=== PATIENT | male | born 1960 | race Caucasian/White ===

== ENCOUNTER 2017-07-04 08:24 | Emergency (ER) | payer OTHER, BC ==
[~2017-07-04] VITALS: Ht 188 cm; Wt 135.0 kg
[~2017-07-04 08:24] MED LIST: CEPH500C PO; CPR500 PO; HYDUNK; LRT5 PO; [UNRECOGNIZED DRUG - CODE]
[2017-07-04 08:30] VITALS: TEMP 36.9; Ht 188 cm; Wt 135.0 kg
[2017-07-04 08:36] VITALS: O2SAT 97
[2017-07-04] MEDS ORDERED: OMEG10007 PO (08:51)
[2017-07-04] MEDS ORDERED: LISI-788 PO (08:51)
[2017-07-04] MEDS ORDERED: LIDOCAINE/EPINEPHRINE 1% 20 ML VIAL INFIL ONE (09:00)
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
[2017-07-04 09:28] LABS: ISTAT CREATININE 1.1 mg/dl (0.6-1.3); ISTAT HEMOGLOBIN 13.9 g/dl (14.0-18.0); ISTAT IONIZED CALCIUM 1.16 mmol/l (1.12-1.32)
[2017-07-04] MEDS ORDERED: OPTIRAY 320 IV PRN (09:45)
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
[2017-07-04] MEDS ORDERED: ACETAMINOPHEN 500 MG TAB PO STA (10:02)
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
[2017-07-04] MEDS ORDERED: OXYC-57 PO (11:50)
[2017-07-04 12:47] VITALS: BP 148/75; PULSE 75; O2SAT 98
== END 2017-07-04 12:48 | disposition home or self-care (01) ==
LOC: EDBD 08:24 → C.EDB 08:25
DX: S81.812A Laceration without foreign body, left lower leg, initial encounter (principal); S22.32XA Fracture of one rib, left side, initial encounter for closed fracture; V43.52XA Car driver injured in collision with other type car in traffic accident, initial encounter; J98.59 Other diseases of mediastinum, not elsewhere classified; Z79.899 Other long term (current) drug therapy

== ENCOUNTER 2017-07-25 07:19 | Inpatient (IN) | payer BC, OTHER ==
[2017-07-15 08:38] VITALS: BMI 36.0
--- NOTE | 2017-07-15 09:14 | PAT Medication Instructions ---
Service Date Jul 15, 2017. Current Home Medication List Cephalexin Monohydrate (Keflex), 500 MG PO BID Fish Oil ([place]-3), 1 CAP PO QAM Lisinopril/Hctz (Zestoretic 20MG/25MG), 1 TAB PO QAM Oxycodone/Acetaminophen 5MG/325MG (Percocet 5MG/325MG), 1-2 TABLETS PO Q4H PRN for Pain Medication Instructions For Your Scheduled Surgery -Continue as directed: Cephalexin Monohydrate (Keflex), 500 MG PO BID - Hold the following medications starting tomorrow (07/16): Fish Oil ([place]-3), 1 CAP PO QAM - Hold the following medications the morning of surgery: Lisinopril/Hctz (Zestoretic 20MG/25MG), 1 TAB PO QAM - Take the following medications the morning of surgery with a sip of water: Oxycodone/Acetaminophen 5MG/325MG (Percocet 5MG/325MG), 1-2 TABLETS PO Q4H PRN for Pain (if needed, can take up t four hours before surgery) - Take the following medications as scheduled the night before surgery: Oxycodone/Acetaminophen 5MG/325MG (Percocet 5MG/325MG), 1-2 TABLETS PO Q4H PRN for Pain (if needed) If you have any questions please call us at [phone] or [phone] or [phone]
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
[2017-07-15 10:32] LABS: BASO % 0.5 %; BASO ABS # 0.04 K/uL (0-0.2); COMPLETE YES; EOS % 2.8 %; HEMATOCRIT 40.1 % (42-52); IG% 0.7 %; LYMPH ABS # 1.15 K/uL (1.2-3.4); MEAN CELL VOLUME 84.1 fL (80-100); MEAN CORPUSCULAR HEMOGLOBIN 29.6 pg (25-34); MEAN CORPUSCULAR HGB CONC 35.2 g/dl (32-36); MEAN PLATELET VOLUME 8.8 fL (7.4-10.4); MONO % 4.1 %; NEUT % 77.9 %; PLATELET COUNT 317 K/uL (130-400); RED BLOOD COUNT 4.77 M/uL (4.7-6.1); WHITE BLOOD COUNT 8.22 K/uL (4.8-10.8)
[2017-07-15 10:43] LABS: BUN/CREATININE RATIO 17.8 (10-20); CALCIUM 9.3 mg/dl (8.5-10.1); CREATININE 1.16 mg/dl (0.60-1.40)
[~2017-07-25] VITALS: Ht 188 cm; Wt 128.5 kg
[2017-07-25] VITALS (8 sets, daily range): BP systolic 108–147; BP diastolic 58–80; PULSE 68–89; TEMP 36.5–37.6; O2SAT 94–97; Ht 188 cm; Wt 128.5 kg
[~2017-07-25 07:19] MED LIST changes: -CEPH500C PO; +CEPH500C2 PO; -CPR500 PO; -HYDUNK; +LACTATED RINGER'S 1000ML 1,000 ML IV SCH; +LISI-788 PO; -LRT5 PO; +OMEG10007 PO; +OXYC-57 PO; -[UNRECOGNIZED DRUG - CODE]
--- NOTE | 2017-07-25 07:48 | History & Physical Bridge Note ---
H&P Re-Evaluation Bridge Note: I have examined the patient, reviewed the History & Physical and in the interval since the performance of the History & Physical I have noted the following changes of clinical significance: No changes noted
[2017-07-25] MEDS ORDERED: BUPIVACAINE LIPOSOME 1/3% 266 MG/20 ML VIAL INFIL ONE (09:55)
[2017-07-25] MEDS ORDERED: SODIUM CHLORIDE 0.9% PF 50 ML VIAL ONE (09:55)
[2017-07-25] MEDS ORDERED: MIDAZOLAM HCL 1 MG/ML 2ML VIAL ONE (09:58)
[2017-07-25] MEDS ORDERED: FENTANYL CITRATE INJ 50 MCG/1 ML 2 ML VIAL ONE ×3 (09:58→13:04)
[2017-07-25] MEDS ORDERED: ATROPINE SULFATE 0.1 MG/ML 5ML SYR IV PRN (10:15)
[2017-07-25] MEDS ORDERED: PHENYLEPHRINE 100MCG/ML 5ML SYR IV PRN (10:15)
[2017-07-25] MEDS ORDERED: MEPERIDINE HCL 25 MG/ML CARP IV PRN (10:15)
[2017-07-25] MEDS ORDERED: FLUMAZENIL 0.1 MG/1 ML 10 ML VIAL IV PRN (10:15)
[2017-07-25] MEDS ORDERED: EpHEDrine SULFATE INJ 50 MG/ML AMP IV PRN (10:15)
[2017-07-25] MEDS ORDERED: NALOXONE HCL 0.4 MG/1 ML VIAL/CARP IV PRN (10:15)
[2017-07-25] MEDS ORDERED: MoRPHine SULFATE 10 MG/ML CARP/VIAL IV PRN (10:15)
[2017-07-25] MEDS ORDERED: LABETALOL HCL IV 5 MG/ML 20ML IV PRN (10:15)
[2017-07-25] MEDS ORDERED: ONDANSETRON INJ 2 MG/ML 2 ML VIAL IV PRN ×2 (10:15→14:15)
[2017-07-25] MEDS ORDERED: CEFAZOLIN SOD 1 GM VIAL ONE (10:23)
[2017-07-25] MEDS ORDERED: SUCCINYLCHOLINE CHLORIDE 20 MG/ML 10 ML VIAL IV ONE (12:03)
[2017-07-25] MEDS ORDERED: PHENYLEPHRINE 100MCG/ML 5ML SYR ONE (12:03)
[2017-07-25] MEDS ORDERED: ONDANSETRON INJ 2 MG/ML 2 ML VIAL ONE (12:03)
[2017-07-25] MEDS ORDERED: ROCURONIUM BROMIDE 10 MG/ML 5 ML VIAL IV ONE ×5 (12:03→13:19)
[2017-07-25] MEDS ORDERED: DEXAMETHASONE SOD INJ 4 MG/ML VIAL ONE (12:03)
[2017-07-25] MEDS ORDERED: EpHEDrine SULFATE 50MG/5ML SYR ONE (12:03)
[2017-07-25] MEDS ORDERED: LIDOCAINE HCL 2% 2 ML VIAL (20MG/ML) ONE (12:03)
[2017-07-25] MEDS ORDERED: PROPOFOL IV EMULSION 10 MG/ML 20 ML VIAL IV ONE (12:03)
[2017-07-25] MEDS ORDERED: HYDROmorphone INJ 2 MG/ML SYR/VIAL ONE (13:52)
[2017-07-25] MEDS ORDERED: MoRPHine SULFATE 2 MG/ML CARP IV PRN (14:15)
[2017-07-25] MEDS ORDERED: OXYCODONE HCL IR 5 MG TAB (IMMEDIATE RELEASE) PO PRN (14:15)
[2017-07-25] MEDS: HYDROmorphone INJ 1 MG/ML SYR IV PRN ×2 (14:35→14:45)
--- NOTE | 2017-07-25 14:46 | DIAGNOSTIC IMAGING REPORT ---
SINGLE VIEW CHEST CLINICAL HISTORY: Status post mediastinal mass excision. FINDINGS: An AP, portable, semierect chest radiograph is compared to study dated 07/15/2017. Correlation is made with chest CT dated 07/04/2017. The examination is degraded by portable technique, apical lordotic positioning, and patient rotation. A chest tube is present at the right apex. No pneumothorax is seen. The heart appears mildly enlarged. There is prominence of the pulmonary vasculature. A trace right pleural effusion is identified. Foci of linear atelectasis are present in both lungs, greatest in the right upper lung. The bony thorax is grossly intact. Subcutaneous emphysema is noted along the right chest wall. IMPRESSION: 1. A right apical chest tube is in place. No pneumothorax is seen. 2. Mild cardiac enlargement with prominence of the central pulmonary vessels. Correlate clinically for evidence of congestive failure/fluid overload. 3. Low lung volumes with foci of platelike atelectasis. 4. A trace right pleural effusion is seen. Electronically signed by: Adin Farr M.D. 07/25/2017 2:44 PM Dictated Date/Time: 07/25/2017 2:42 PM
--- NOTE | 2017-07-25 15:00 | Anesthesiology Progress Note ---
Anesthesia Post Op Note Date & Time Jul 25, 2017 at 15:00 Vital Signs Pain Intensity: 3 Vital Signs Past 12 Hours Date Time Temp Pulse Resp B/P (MAP) Pulse Ox O2 Delivery O2 Flow Rate FiO2 07/25/17 14:16 36.2 73 16 123/74 99 Oxymask 7 07/25/17 07:58 36.7 68 18 138/76 97 Room Air Notes Mental Status: alert / awake / arousable, participated in evaluation Pt Amnestic to Procedure: Yes Nausea / Vomiting: adequately controlled Pain: adequately controlled Airway Patency, RR, SpO2: stable & adequate BP & HR: stable & adequate Hydration State: stable & adequate Anesthetic Complications: no major complications apparent
[2017-07-25] MEDS: D5W AND 1/2NSS 1,000 ML IV SCH (16:49)
[2017-07-25] MEDS: KETOROLAC TROMETHAMINE 15 MG/ML VIAL IV. SCH (17:57)
[2017-07-25] MEDS: METOCLOPRAMIDE HCL INJ 5 MG/ML 2 ML VIAL IV. SCH (17:59)
[2017-07-25] MEDS: CEFAZOLIN IV 2,000 MG in SYRINGE 0 ML IV SCH (18:14)
[2017-07-25] MEDS: ACETAMINOPHEN IV 1,000 MG in EMPTY BAG 0 ML IV SCH (18:14)
[2017-07-25] MEDS: DOCUSATE SODIUM 100 MG CAP PO SCH (20:27)
[2017-07-26] VITALS (7 sets, daily range): BP systolic 105–119; BP diastolic 59–72; PULSE 72–85; TEMP 36.9–37.2; O2SAT 91–95
[2017-07-26] MEDS: METOCLOPRAMIDE HCL INJ 5 MG/ML 2 ML VIAL IV. SCH ×2 (00:24→08:44)
[2017-07-26] MEDS: KETOROLAC TROMETHAMINE 15 MG/ML VIAL IV. SCH ×2 (00:25→08:39)
[2017-07-26] MEDS: CEFAZOLIN IV 2,000 MG in SYRINGE 0 ML IV SCH (02:16)
[2017-07-26] MEDS: ACETAMINOPHEN IV 1,000 MG in EMPTY BAG 0 ML IV SCH (02:17)
[2017-07-26] MEDS: D5W AND 1/2NSS 1,000 ML IV SCH (02:20)
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
[2017-07-26] MEDS ORDERED: ACETAMINOPHEN 325 MG TAB PO SCH (08:00)
[2017-07-26] MEDS ORDERED: CLC100 PO (08:01)
[2017-07-26] MEDS ORDERED: OXYC-57 PO (08:01)
--- NOTE | 2017-07-26 08:04 | DIAGNOSTIC IMAGING REPORT ---
CHEST ONE VIEW PORTABLE CLINICAL HISTORY: Mediastinal mass excision. COMPARISON STUDY: Chest radiograph July 25, 2017. FINDINGS: A right apical chest tube remains in place. A small right pleural effusion is noted. Linear right midlung opacity suggests atelectasis. There is no pneumothorax or evidence of pulmonary edema. Mild cardiomegaly is unchanged. Minimal right basilar opacity is present. IMPRESSION: Right chest tube in place. No pneumothorax. Small right pleural effusion with right lung opacities which favor atelectasis. Electronically signed by: Ras Carrasco M.D. 07/26/2017 8:02 AM Dictated Date/Time: 07/26/2017 7:51 AM
--- NOTE | 2017-07-26 08:04 | Discharge Instructions ---
Discharge Instructions Date of Service Jul 26, 2017. Admission Reason for Admission: Mediastinal Mass Discharge Discharge Diagnosis / Problem: Mediastinal Mass Discharge Goals Goal(s): Learn about illness Activity Recommendations Activity Limitations: as noted below Lifting Limitations: none 1. Do not drive if taking percocet. 2. Do not drive until cleared to do so by Dr. Hook. 3. You may remove dressings on July 29, 2017 and shower thereafter. No tub baths. . Instructions / Follow-Up Instructions / Follow-Up 1. Office appointment with Dr. Hook in 1 week. Office will call with date and time of appointment. Go to hospital 1 hour before appointment to have a chest x-ray taken. Current Hospital Diet Patient's current hospital diet: Regular Diet Discharge Diet Recommended Diet: Regular Diet Procedures Procedures Performed: Robotic assisted right thorascopic excision of mediastinal mass. Pending Studies Studies pending at discharge: no Medical Emergencies . Who to Call and When: Medical Emergencies: If at any time you feel your situation is an emergency, please call 911 immediately. . Non-Emergent Contact Non-Emergency issues call your: Surgeon Call Non-Emergent contact if: you have a fever, your pain is not controlled, wound has increased drainage . "Provider Documentation" section prepared by Zachery Atkins. . VTE Core Measure Inpt VTE Proph given/why not?: Enoxaparin (Lovenox)SQ
--- NOTE | 2017-07-26 08:20 | DIAGNOSTIC IMAGING REPORT ---
CHEST ONE VIEW PORTABLE CLINICAL HISTORY: chest tube removal tube position COMPARISON STUDY: 07/26/2017 FINDINGS: Interval removal of a right-sided chest tube. No significant postprocedural pneumothorax. Unchanging plaque atelectasis right mid and lower lung. IMPRESSION: Interval removal of right-sided chest tube. No significant pneumothorax. Platelike atelectasis right mid and lower lung. The above report was generated using voice recognition software. It may contain grammatical, syntax or spelling errors. Electronically signed by: Scotty Blanca M.D. 07/26/2017 8:18 AM Dictated Date/Time: 07/26/2017 8:17 AM
[2017-07-26] MEDS: DOCUSATE SODIUM 100 MG CAP PO SCH (08:38)
[2017-07-26] MEDS ORDERED: LISINOPRIL 20 MG TAB PO SCH (09:00)
[2017-07-26] MEDS ORDERED: ENOXAPARIN 40 MG/0.4 ML SYR SQ SCH (09:00)
--- NOTE | 2017-07-26 09:01 | Anesthesiology Progress Note ---
Anesthesia Post Op Note Date & Time Jul 26, 2017 at 09:01 Vital Signs Pain Intensity: 3.0 Vital Signs Past 12 Hours Date Time Temp Pulse Resp B/P (MAP) Pulse Ox O2 Delivery O2 Flow Rate FiO2 07/26/17 08:10 Room Air 07/26/17 07:47 95 Room Air 07/26/17 07:42 36.9 76 17 118/72 (87) 95 Room Air 07/26/17 07:01 37.0 76 16 119/72 (88) 94 Room Air 07/26/17 03:00 36.9 72 16 108/68 (81) 91 Nasal Cannula 2.0 07/26/17 02:00 36.9 85 16 105/59 (74) 95 Room Air 07/26/17 00:05 Nasal Cannula 2.0 07/26/17 00:00 37.2 84 16 113/68 (83) 95 Nasal Cannula 2.0 07/25/17 22:02 37.6 07/25/17 22:00 37.6 86 18 109/58 (75) 95 Nasal Cannula 2.0 Notes Mental Status: alert / awake / arousable, participated in evaluation Pt Amnestic to Procedure: Yes Nausea / Vomiting: adequately controlled Pain: adequately controlled Airway Patency, RR, SpO2: stable & adequate BP & HR: stable & adequate Hydration State: stable & adequate Anesthetic Complications: no major complications apparent
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
== END 2017-07-26 10:15 | disposition home or self-care (01) | DRG 165 ==
LOC: C.ACU 07:19 → C.MSW 07:45 → ENRESERV 15:24
PROVIDERS: ADMIT Surgery; ATTEND Surgery
PROC: 8E0W4CZ Robotic Assisted Procedure of Trunk Region, Percutaneous Endoscopic Approach (ICD-10-PCS; principal; 2017-07-25 09:15)
PROC: 0WBC4ZZ Excision of Mediastinum, Percutaneous Endoscopic Approach (ICD-10-PCS; principal; 2017-07-25 09:15)
DX: J98.59 Other diseases of mediastinum, not elsewhere classified (principal); S22.42XD Multiple fractures of ribs, left side, subsequent encounter for fracture with routine healing; S81.812D Laceration without foreign body, left lower leg, subsequent encounter; V89.2XXD Person injured in unspecified motor-vehicle accident, traffic, subsequent encounter; I10 Essential (primary) hypertension; E66.9 Obesity, unspecified; Z68.36 Body mass index [BMI] 36.0-36.9, adult; Z72.0 Tobacco use; Z79.899 Other long term (current) drug therapy

== ENCOUNTER → 2017-08-05 | Outpatient (CLI) | payer BC ==
[~2017-08-05] MED LIST changes: -CEPH500C2 PO; +CLC100 PO; -LACTATED RINGER'S 1000ML 1,000 ML IV SCH
--- NOTE | 2017-08-05 09:50 | DIAGNOSTIC IMAGING REPORT ---
CHEST 2 VIEWS ROUTINE CLINICAL HISTORY: J98.59 Mediastinal [id number] COMPARISON STUDY: 07/26/2017 FINDINGS: The heart is normal in size. There is no failure. There is no lobar consolidation. There is a right pleural effusion. There is a triangular 5 cm right midlung zone opacity, likely representing loculated pleural fluid. The left lung is clear.[ IMPRESSION: 1. Interval development of a right pleural effusion. 2. 5 cm right midlung zone opacity, likely representing loculated pleural fluid 3. Right basilar atelectatic change Electronically signed by: Sampson Lai M.D. 08/05/2017 9:49 AM Dictated Date/Time: 08/05/2017 9:46 AM
== END | disposition home or self-care (01) ==
LOC: C.RAD 09:11
PROVIDERS: ATTEND Surgery
DX: J98.59 Other diseases of mediastinum, not elsewhere classified (principal); J90 Pleural effusion, not elsewhere classified; R91.8 Other nonspecific abnormal finding of lung field; J98.11 Atelectasis

== ENCOUNTER → 2017-08-22 | Outpatient (CLI) | payer BC ==
[~2017-08-22] MED LIST changes: -CLC100 PO; -OXYC-57 PO
--- NOTE | 2017-08-22 09:54 | DIAGNOSTIC IMAGING REPORT ---
TWO VIEW CHEST CLINICAL HISTORY: Pleural effusion. FINDINGS: PA and lateral chest radiographs are compared to study dated 08/05/2017 and correlated with chest CT dated 07/04/2017. The heart is mildly enlarged and there is atherosclerotic calcification of the thoracic aorta. The pulmonary vasculature is noncongested. A right pleural effusion with right basilar atelectasis is unchanged. Fluid is seen along the right major fissure left lung appears clear. There is no pneumothorax. The bony thorax appears intact. IMPRESSION: 1. A right pleural effusion with associated right basilar atelectasis is unchanged from previous. 2. The left lung appears clear. 3. Mild cardiac enlargement. Electronically signed by: Adin Farr M.D. 08/22/2017 9:53 AM Dictated Date/Time: 08/22/2017 9:51 AM
== END | disposition home or self-care (01) ==
LOC: C.RAD1850 09:08
PROVIDERS: ATTEND Surgery
DX: J90 Pleural effusion, not elsewhere classified (principal)

== ENCOUNTER → 2017-11-12 | Outpatient (CLI) | payer BC ==
[~2017-11-12] MED LIST changes: +MULT-506 PO; +MULT-920 PO
[2017-11-12 13:32] VITALS: BP 127/82; PULSE 79; TEMP 36.8; O2SAT 96
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
== END | disposition home or self-care (01) ==
LOC: C.ONC 13:27
PROVIDERS: ATTEND Physician Assistant Medical
DX: Z08 Encounter for follow-up examination after completed treatment for malignant neoplasm (principal); Z92.3 Personal history of irradiation; Z85.89 Personal history of malignant neoplasm of other organs and systems

== ENCOUNTER 2017-12-03 05:15 | Inpatient (IN) | payer OTHER, BC ==
[2017-11-07 09:27] VITALS: BMI 36.0
--- NOTE | 2017-11-07 10:08 | PAT Medication Instructions ---
Service Date Nov 07, 2017. Current Home Medication List Fish Oil ([place]-3), 1 CAP PO QAM Lisinopril/Hctz (Zestoretic 20MG/25MG), 1 TAB PO QAM Multiple Vitamins W/ Minerals (Airborne), 8-12 TAB PO DAILY Multivitamin (Multivitamin), 1 TAB PO QAM Medication Instructions For Your Scheduled Surgery - Hold the following medications 2 weeks prior to surgery: Fish Oil ([place]-3), 1 CAP PO QAM - Hold the following medications the morning of surgery: Lisinopril/Hctz (Zestoretic 20MG/25MG), 1 TAB PO QAM Multiple Vitamins W/ Minerals (Airborne), 8-12 TAB PO DAILY Multivitamin (Multivitamin), 1 TAB PO QAM If you have any questions please call us at [phone] or [phone] or [phone]
--- NOTE | 2017-11-07 10:38 | DIAGNOSTIC IMAGING REPORT ---
CHEST 2 VIEWS ROUTINE HISTORY: 57 years-old Male pat preoperative exam. Acute cough. COMPARISON: Chest radiographs 08/22/2017, CT therapy scan 08/14/2017 and chest radiographs 08/05/2017 TECHNIQUE: PA and lateral views of the chest FINDINGS: Cardiac silhouette is again mildly enlarged, unchanged. Atherosclerosis of the aorta. There is no pneumothorax. The left lung is generally clear. Linear subsegmental opacities of the right perihilar lung and right lung base redemonstrated suggesting areas of atelectasis/scarring with mildly loculated right pleural effusion again noted. Pleural fluid tracks into the right minor fissure. Degenerative changes are seen within the shoulders and spine. IMPRESSION: 1. No acute process. 2. Unchanged mildly loculated small right pleural effusion with subsegmental right lung base and midlung atelectasis/scarring. The above report was generated using voice recognition software. It may contain grammatical, syntax or spelling errors. Electronically signed by: Bernard Prabhakar M.D. 11/07/2017 10:36 AM Dictated Date/Time: 11/07/2017 10:34 AM
[2017-11-07 11:21] LABS: BASO % 0.5 %; BASO ABS # 0.02 K/uL (0-0.2); EOS % 2.7 %; HEMATOCRIT 41.2 % (42-52); HEMOGLOBIN 14.1 g/dL (14.0-18.0); IG# 0.02 K/uL (0.00-0.02); LYMPH % 13.6 %; MEAN CELL VOLUME 83.4 fL (80-100); MEAN CORPUSCULAR HEMOGLOBIN 28.5 pg (25-34); MEAN CORPUSCULAR HGB CONC 34.2 g/dl (32-36); MEAN PLATELET VOLUME 8.6 fL (7.4-10.4); MONO % 8.9 %; MONO ABS # 0.33 K/uL (0.11-0.59); NEUT % 73.8 %; NEUT ABS # 2.72 K/uL (1.4-6.5); PLATELET COUNT 213 K/uL (130-400); RED CELL DISTRIBUTION WIDTH CV 14.4 % (11.5-14.5); RED CELL DISTRIBUTION WIDTH SD 43.8 fL (36.4-46.3); WHITE BLOOD COUNT 3.69 K/uL (4.8-10.8)
[2017-11-07 11:30] LABS: PTT PATIENT 27.9 SECONDS (21.0-31.0)
[2017-11-07 11:38] LABS: HEMOGLOBIN A1C 5.2 % (4.5-5.6)
[2017-11-07 11:48] LABS: CREATININE 1.12 mg/dl (0.60-1.40)
[2017-11-07 11:49] LABS: ALBUMIN 3.7 gm/dl (3.4-5.0); CALCIUM 9.1 mg/dl (8.5-10.1)
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
[~2017-12-03] VITALS: Ht 188 cm; Wt 129.2 kg
[2017-12-03] VITALS (10 sets, daily range): BP systolic 110–164; BP diastolic 65–83; PULSE 65–97; TEMP 36.7–37.4; O2SAT 95–98; Ht 188 cm; Wt 129.2 kg
[2017-12-03] MEDS ORDERED: ACETAMINOPHEN 500 MG TAB PO SCH (06:00)
[2017-12-03] MEDS ORDERED: CeleBREX 200 MG CAP PO SCH (06:00)
[2017-12-03] MEDS ORDERED: GABAPENTIN 600 MG PO SCH (06:00)
[2017-12-03] MEDS ORDERED: LACTATED RINGER'S 1000ML 1,000 ML IV SCH (06:00)
[2017-12-03] MEDS ORDERED: METOCLOPRAMIDE HCL 10 MG TAB PO SCH (06:00)
[2017-12-03] MEDS ORDERED: LACTATED RINGER'S 1000ML 500 ML IV SCH (06:00)
[2017-12-03] MEDS ORDERED: FAMOTIDINE 20 MG TAB PO SCH (06:00)
[2017-12-03] MEDS ORDERED: CEFAZOLIN 3000MG IV PUSH 22.5 ML IV SCH (06:00)
[2017-12-03] MEDS ORDERED: DEXAMETHASONE 4 MG TAB PO SCH (06:00)
[2017-12-03] MEDS ORDERED: ROPIVACAINE 5MG/ML 30 ML 150 MG, BUPIVACAINE 0.5% MPF INJ 30 ML, EpINEphrine HCL INJ 0.... INFIL SCH ×8 (06:00)
[2017-12-03] MEDS ORDERED: BUPIVACAINE 0.5 % 5 MG/1 ML PF 10ML VIAL ONE (06:26)
[2017-12-03] MEDS ORDERED: BUPIVACAINE 0.25% 30 ML VIAL ONE (06:26)
[2017-12-03] MEDS ORDERED: EpINEphrine INJ 1MG/ML AMP 1 MG/ML AMP ONE (06:27)
[2017-12-03] MEDS: TRANEXAMIC ACID INJ 1,000 MG x 2 Bags IV SCH ×4 (06:35→08:38)
[2017-12-03] MEDS ORDERED: MIDAZOLAM HCL 1 MG/ML 2ML VIAL ONE ×3 (06:53→07:29)
[2017-12-03] MEDS ORDERED: POVIDONE-IODINE OP SOLN 30 ML BTL ONE (06:59)
[2017-12-03] MEDS ORDERED: BACITRACIN 50000 UNIT VIAL ONE (06:59)
[2017-12-03] MEDS ORDERED: ORTHO JOINT ANESTHETIC ONE (06:59)
[2017-12-03] MEDS ORDERED: KETAMINE HCL INJ 50 MG/ML 10 ML VIAL ONE (07:30)
[2017-12-03] MEDS ORDERED: FENTANYL CITRATE INJ 50 MCG/1 ML 2 ML VIAL IV PRN (08:00)
[2017-12-03] MEDS ORDERED: FLUMAZENIL 0.1 MG/1 ML 10 ML VIAL IV PRN (08:00)
[2017-12-03] MEDS ORDERED: PHENYLEPHRINE 100MCG/ML 5ML SYR IV PRN (08:00)
[2017-12-03] MEDS ORDERED: ATROPINE SULFATE 0.1 MG/ML 5ML SYR IV PRN (08:00)
[2017-12-03] MEDS ORDERED: MEPERIDINE HCL 25 MG/ML CARP IV PRN (08:00)
[2017-12-03] MEDS ORDERED: ONDANSETRON INJ 2 MG/ML 2 ML VIAL IV PRN ×2 (08:00→09:30)
[2017-12-03] MEDS ORDERED: EpHEDrine SULFATE INJ 50 MG/ML AMP IV PRN (08:00)
[2017-12-03] MEDS ORDERED: NALOXONE HCL 0.4 MG/1 ML VIAL/CARP IV PRN (08:00)
[2017-12-03] MEDS ORDERED: LABETALOL HCL IV 5 MG/ML 20ML IV PRN (08:00)
[2017-12-03] MEDS ORDERED: HYDROmorphone INJ 0.5 MG/0.5 ML SYR IV PRN (08:00)
[2017-12-03] MEDS ORDERED: PROPOFOL IV EMULSION 10 MG/ML 20 ML VIAL IV ONE (08:33)
[2017-12-03] MEDS ORDERED: LIDOCAINE HCL 2% 2 ML VIAL (20MG/ML) ONE (08:34)
--- NOTE | 2017-12-03 08:41 | [facility] Post Operative Brief Note ---
Immediate Operative Summary Operative Date Dec 03, 2017. Pre-Operative Diagnosis Left knee degenerative joint disease Post-Operative Diagnosis Left knee degenerative joint disease Procedure(s) Performed Left Total Knee Arthroplasty- Cemented utilizing Wei neph mitzyney 2 total knee arthroplasty Surgeon Dr. Novak [employer] Surgeon(s) Scotty Teague PA-C Estimated Blood Loss 10 ml Findings Consistent with Post-Op Diagnosis Specimens Permanent Specimen A: Left knee bone and tissue Anesthesia Type MAC Spinal Regional Complication(s) none Disposition Disposition: Recovery Room / PACU
--- NOTE | 2017-12-03 08:42 | [facility] Operative Report ---
Operative Report Operative Date Dec 03, 2017. Pre-Operative Diagnosis Left knee degenerative joint disease Post-Operative Diagnosis Left knee degenerative joint disease Procedure(s) Performed Left Total Knee Arthroplasty- Cemented utilizing Wei nephew journey 2 total knee arthroplasty size 7 femur 5 tibia 13 probably [address] Novak [employer] Surgeon(s) Scotty Teague PA-C Estimated Blood Loss 10 ml Findings Patient presents with severe end-stage chronic or mild degenerative joint disease varus alignment end-stage DJD left knee no response to conservative therapy x-rays will be able to subchondral cystic changes sclerosis marginal osteophytes bone to bone Specimens Permanent Specimen A: Left knee bone and tissue Anesthesia Type MAC Spinal Regional Complication(s) none Disposition Recovery Room / PACU Indications Patient presents after failed attempts at conservative management including injections anti-inflammatories relative rest activity modification patient's x- rays are consistent with subchondral sclerosis cystic changes marginal osteophytes bone the bone changes with varus alignment Description of Procedure After proper prepping and draping of the left lower extremity anterior midline incision was made over the region of the extensor extensor mechanism after meticulous hemostasis was obtained and maintained in subcutaneous tissues a medial parapatellar incision was made The patella was subluxed lateralward the medial lateral gutter were cleaned from any hypertrophic synovitis and scar tissue of the distal femoral block was placed and the distal femoral osteotomy cut was made subsequently the chamfers anterior and posterior osteotomy cuts were made utilizing the 4-in-1 block the tibia was subsequently subluxed anteriorward medial and ateral meniscal remnants were excised in their entirety remnants of the anterior and posterior cruciate ligaments were excised in their entirety excellent exposure of the proximal tibia was obtained the tibial osteotomy guide was placed on the proximal tibial osteotomy cut was made once again the knee was irrigated with copious amounts of sterile saline solution the patella was subsequently everted lateralward thickened scar tissue around the patella was removed the patella was subsequently cut utilizing a freehand technique and was drilled prepared for final preparation and placement of patella socially flexion-extension gaps were checked and the equal and symmetric trials were placed to the appropriate femoral and tibial trials with poly-spacer being placed for equal flexion and extension gaps and full range of motion including extension to 0 and flexion to 140 the trial components after having been taken to recovery range of motion was subsequently removed meticulous hemostasis was obtained and maintained subsequently a knee block injection of joint cocktail including ropivacaine 0.5% 150 mg. Bupivacaine 0.5 % epinephrine 1-200,030 mL's toradol 30 mg dexamethasone 4 mg ketamine 10 mg clonidine 100 micrograms normal saline solution 30 mg was infiltrated into the soft tissues of the posterior knee medial lateral gutters and periosteal synovium special attention was paid to protect neurovascular structures at all times subsequently trial components having been removed the knee was irrigated with sterile saline solution. debris was removed the proximal tibia was subsequently prepared and was made ready for the placement of the tibial component tibial component was also cemented and tamped into position the femoral component was subsequently placed and cemented in the position the patellar component was subsequently cemented in position because hemostasis once again obtained and maintained wound having been thoroughly irrigated with debridement and debridement lavage was performed as well as a medial parapatellar incision closed with #1 Vicryl in interrupted fashion subcutaneous was closed with #2 Vicryl skin was closed with skin clips. PA-C was necessary for prepping and drapping as well as wound closure of deep fascia Sub cutaneous tissue and skin and was necessary for the case. A sterile compressive dressing was placed patient was taken to recovery in stable condition of report dictated by Kishore I attest to the content of the Intraoperative Record and any orders documented therein. Any exceptions are noted below. I attest to the content of the Intraoperative Record and any orders documented therein. Any exceptions are noted below.
[2017-12-03] MEDS ORDERED: SOD PHOSPHATE/SOD BIPHOSPHATE ENEMA 132 ML BTL PR PRN (09:30)
[2017-12-03] MEDS ORDERED: BISACODYL 10 MG SUPP PR PRN (09:30)
[2017-12-03] MEDS ORDERED: CEFAZOLIN IV 2,000 MG in DEXTROSE 5% 50ML 50 ML IV SCH (09:30)
[2017-12-03] MEDS ORDERED: MAGNESIUM HYDROXIDE SUSP 30 ML UDC PO PRN (09:30)
[2017-12-03] MEDS ORDERED: MoRPHine SULFATE 2 MG/ML CARP IV PRN (09:30)
[2017-12-03] MEDS ORDERED: ZOLPIDEM TARTRATE 5 MG TAB PO PRN (09:30)
[2017-12-03] MEDS ORDERED: OXYCODONE HCL IR 5 MG TAB (IMMEDIATE RELEASE) PO PRN (09:30)
[2017-12-03] MEDS ORDERED: ALUMINUM/MAGNESIUM/SIMETH (MAALOX MAX) 30 ML UDC PO PRN (09:30)
[2017-12-03] MEDS ORDERED: KETOROLAC TROMETHAMINE 30 MG/ML VIAL IV. PRN (09:30)
--- NOTE | 2017-12-03 10:31 | Anesthesiology Progress Note ---
Anesthesia Post Op Note Date & Time Dec 03, 2017 at 10:30 Vital Signs Pain Intensity: 0 Vital Signs Past 12 Hours Date Time Temp Pulse Resp B/P (MAP) Pulse Ox O2 Delivery O2 Flow Rate FiO2 12/03/17 10:10 36.4 67 20 108/63 99 Nasal Cannula 2 12/03/17 10:00 36.4 68 20 121/65 99 Nasal Cannula 2 12/03/17 09:50 69 20 122/72 99 Nasal Cannula 2 12/03/17 09:40 74 20 122/70 98 Nasal Cannula 2 12/03/17 09:30 79 14 111/90 98 Nasal Cannula 2 12/03/17 09:20 36.2 72 18 113/65 100 Nasal Cannula 2 12/03/17 05:46 36.8 68 18 135/83 98 Room Air Notes Mental Status: alert / awake / arousable, participated in evaluation Pt Amnestic to Procedure: Yes Nausea / Vomiting: adequately controlled Pain: adequately controlled Airway Patency, RR, SpO2: stable & adequate BP & HR: stable & adequate Hydration State: stable & adequate Neuraxial Anesthesia: was administered, sensory block is resolving Anesthetic Complications: no major complications apparent
--- NOTE | 2017-12-03 10:33 | DIAGNOSTIC IMAGING REPORT ---
TWO VIEWS LEFT KNEE CLINICAL HISTORY: Postoperative examination. FINDINGS: AP and crosstable lateral portable views of the left knee are obtained. A left knee arthroplasty is in near anatomic alignment. There has been undersurface remodeling of the patella. No acute fracture is seen. There are expected postoperative changes around the knee including skin clips, a surgical drain, soft tissue edema, and subcutaneous gas. IMPRESSION: Expected postoperative changes status post left knee arthroplasty. No acute fracture is seen. Electronically signed by: Adin Farr M.D. 12/03/2017 10:32 AM Dictated Date/Time: 12/03/2017 10:31 AM
[2017-12-03] MEDS ORDERED: MoRPHine SULFATE 4 MG/ML 1 ML CARP\\VIAL IV PRN (10:45)
[2017-12-03] MEDS ORDERED: MoRPHine SULFATE 10 MG/ML CARP/VIAL IV PRN (10:45)
[2017-12-03] MEDS: D5W AND 1/2NSS + 20MEQ KCL 1,000 ML IV SCH ×2 (12:08→21:19)
[2017-12-03] MEDS: CEFAZOLIN IV 2,000 MG in SYRINGE 0 ML IV SCH ×2 (14:24→22:13)
[2017-12-03] MEDS: ACETAMINOPHEN 500 MG TAB PO SCH ×2 (14:24→21:19)
[2017-12-03] MEDS: TRAMADOL HCL 50 MG TAB PO PRN (19:42)
[2017-12-03] MEDS: DOCUSATE SODIUM 100 MG CAP PO SCH (20:27)
[2017-12-03] MEDS: ASPIRIN 81 MG ECTAB PO SCH (20:27)
[2017-12-03] MEDS ORDERED: SENNA 8.6 MG TAB PO SCH (21:00)
[2017-12-04 04:07] VITALS: BP 130/74; PULSE 66; TEMP 36.5; O2SAT 99
[2017-12-04] MEDS: ACETAMINOPHEN 500 MG TAB PO SCH ×2 (06:02→14:19)
[2017-12-04 07:06] LABS: HEMATOCRIT 35.3 % (42-52); HEMOGLOBIN 11.6 g/dL (14.0-18.0); MEAN CELL VOLUME 83.5 fL (80-100); MEAN CORPUSCULAR HEMOGLOBIN 27.4 pg (25-34); MEAN CORPUSCULAR HGB CONC 32.9 g/dl (32-36); MEAN PLATELET VOLUME 8.6 fL (7.4-10.4); PLATELET COUNT 183 K/uL (130-400); RED CELL DISTRIBUTION WIDTH CV 13.8 % (11.5-14.5); RED CELL DISTRIBUTION WIDTH SD 42.2 fL (36.4-46.3); WHITE BLOOD COUNT 10.49 K/uL (4.8-10.8)
[2017-12-04] MEDS: D5W AND 1/2NSS + 20MEQ KCL 1,000 ML IV SCH (07:15)
[2017-12-04 07:39] LABS: CALCIUM 7.8 mg/dl (8.5-10.1); CREATININE 1.04 mg/dl (0.60-1.40); POTASSIUM 4.4 mmol/L (3.5-5.1)
[2017-12-04] MEDS ORDERED: NURSING VERBAL MED ORDER ONE (07:45)
[2017-12-04 07:47] VITALS: BP 140/80; PULSE 68; TEMP 36.6; O2SAT 99
--- NOTE | 2017-12-04 08:28 | Anesthesiology Progress Note ---
Anesthesia Post Op Note Date & Time Dec 04, 2017 at 08:27 Vital Signs Pain Intensity: 0.0 Vital Signs Past 12 Hours Date Time Temp Pulse Resp B/P (MAP) Pulse Ox O2 Delivery O2 Flow Rate FiO2 12/04/17 07:47 36.6 68 14 140/80 (100) 99 Room Air 12/04/17 04:07 36.5 66 18 130/74 (92) 99 Room Air 12/03/17 23:55 Room Air 12/03/17 23:26 37.1 65 16 110/65 (80) 98 Room Air Notes Mental Status: alert / awake / arousable, participated in evaluation Pt Amnestic to Procedure: Yes Nausea / Vomiting: adequately controlled Pain: adequately controlled Airway Patency, RR, SpO2: stable & adequate BP & HR: stable & adequate Hydration State: stable & adequate Neuraxial Anesthesia: was administered, sensory block resolved Anesthetic Complications: no major complications apparent
--- NOTE | 2017-12-04 08:44 | Orthopedic Progress Note ---
Orthopedic Progress Note Date of Service Dec 04, 2017. Subjective Post OP Day: 1 Reports: feeling well, Denies: complaints Objective calves soft nontender, N/V intact, dressing C/D/I, A&O x3, toes mobile Date Time Temp Pulse Resp B/P (MAP) Pulse Ox O2 Delivery O2 Flow Rate FiO2 12/04/17 07:47 36.6 68 14 140/80 (100) 99 Room Air 12/04/17 04:07 36.5 66 18 130/74 (92) 99 Room Air 12/03/17 23:55 Room Air 12/03/17 23:26 37.1 65 16 110/65 (80) 98 Room Air 12/03/17 20:21 37.4 79 16 122/80 (94) 95 Room Air 12/03/17 17:33 36.8 81 16 164/65 (98) 98 12/03/17 17:30 Room Air 12/03/17 13:31 36.8 97 16 144/72 (96) 97 Room Air 12/03/17 13:00 78 16 144/79 (100) 95 Nasal Cannula 12/03/17 12:37 93 16 151/76 (101) 95 Room Air 12/03/17 11:30 74 18 135/78 (97) 97 Room Air 12/03/17 11:00 71 16 120/65 (83) 12/03/17 10:30 98 Nasal Cannula 2.0 12/03/17 10:30 97 Nasal Cannula 2.0 12/03/17 10:30 36.7 69 16 118/67 (84) 97 Nasal Cannula 2.0 12/03/17 10:25 69 20 111/70 98 Nasal Cannula 2 12/03/17 10:10 36.4 67 20 108/63 99 Nasal Cannula 2 12/03/17 10:00 36.4 68 20 121/65 99 Nasal Cannula 2 12/03/17 09:50 69 20 122/72 99 Nasal Cannula 2 12/03/17 09:40 74 20 122/70 98 Nasal Cannula 2 12/03/17 09:30 79 14 111/90 98 Nasal Cannula 2 12/03/17 09:20 36.2 72 18 113/65 100 Nasal Cannula 2 Laboratory Results 24 Hours: Test 12/04/17 06:33 Hematocrit 35.3 % Hemoglobin 11.6 g/dL Prothromb Time International Ratio 1.0 Prothrombin Time 10.5 SECONDS Assessment & Plan Assessment: POD 1 s/p Left TKA Plan: PT/OT Possible dc to home today with HH services. Inhouse Planning Pain Management: Celebrex, Toradol, Ultram, Morphine, PO Tylenol, Oxy IR DVT Prophylaxis: TEDs, SCDs, ASA Discharge Planning Discharge Planning: home with home health
[2017-12-04] MEDS: TRAMADOL HCL 50 MG TAB PO PRN (09:00)
[2017-12-04] MEDS ORDERED: LISINOPRIL/HCTZ 20/25MG TAB PO SCH (09:00)
[2017-12-04] MEDS ORDERED: PANTOprazole SOD 40 MG TAB PO SCH (09:00)
[2017-12-04] MEDS: ASPIRIN 81 MG ECTAB PO SCH (09:01)
[2017-12-04] MEDS: DOCUSATE SODIUM 100 MG CAP PO SCH (09:01)
[2017-12-04 09:57] VITALS: O2SAT 99
[2017-12-04 11:44] VITALS: BP 124/78; PULSE 66; TEMP 36.6; O2SAT 97
[2017-12-04] MEDS ORDERED: RXC5 PO (12:07)
[2017-12-04] MEDS ORDERED: CLB200 PO (12:07)
[2017-12-04] MEDS ORDERED: ASPEC81 PO (12:07)
[2017-12-04] MEDS ORDERED: SENN-61 PO (12:07)
[2017-12-04] MEDS ORDERED: ACET-24 PO (12:07)
--- NOTE | 2017-12-04 12:12 | Discharge Instructions ---
Discharge Instructions Date of Service Dec 04, 2017. Admission Reason for Admission: Left Knee Osteoarthritis Discharge Discharge Diagnosis / Problem: Left Knee Djd Discharge Goals Goal(s): Decrease discomfort, Improve function Activity Recommendations Activity Limitations: per Instructions/Follow-up section Weightbearing Status: Left non-weightbearing . Instructions / Follow-Up Instructions / Follow-Up ACTIVITY RECOMMENDATIONS: SELF CARE INSTRUCTIONS AFTER TOTAL KNEE REPLACEMENT A. You may need to continue a physical therapy program after discharge from the hospital. There are several options available to you. Your doctor will assist you in selecting the best one for you. 1. An out-patient facility 2 to 3 times a week for therapy or home therapy. 2. Continue working on all exercises taught to you in the hospital. Your goals should be to increase bending of your knee to 90 degrees and beyond and to fully straighten your knee. B. You may progress at your own pace from walking with a walker or crutches to a cane; then to no assistive devices. C. Make walking a part of your daily routine. Be up as much as comfortable with rest periods throughout the day. Rest with leg elevation is very important. Use the ice wrap frequently for the first 3-4 weeks. D. There are no restrictions on activities. You may ride in a car, shop, participate in loan counselor and all social activities. E. Wear the long elastic stockings (BRYANT hose) 20 hours a day for 2 weeks after surgery. They can be removed several times a day for laundering and for a bath. F. You may shower, no tub baths until cleared by your doctor. SPECIAL CARE INSTRUCTIONS: VERY IMPORTANT TO READ AND REVIEW A. There are a few signs you need to watch for after you are home. Call [facility] if you notice any of the followin. Increased severe knee pain. Some pain is expected especially when you exercise. 2. Increased swelling in your leg or knee; pain or swelling of the calf muscle in either lower leg. 3. Any fluid drainage from the incision. 4. Shortness of breath or chest pain. B. Please call [facility] at if you have any concerns or questions about your operation or recovery. The doctor or his nurse will return your call promptly. C. You must take antibiotics before dental work, bladder, bowel or other surgery. Your doctor will provide you with a permanent care to carry describing this precaution. IMPORTANT: * REMEMBER TO TAKE ASPIRIN, 81 MG, TWICE DAILY FOR 4 WEEKS UNLESS OTHERWISE DIRECTED. THIS IS YOUR BLOOD THINNER. * HIGH RISK PATIENTS MAY BE PRESCRIBED A STRONGER BLOOD THINNER. THIS WILL BE PROVIDED AT DISCHARGE. * CALL IF INCREASED PAIN, REDNESS, DRAINAGE OR FEVER GREATER THAT 101. * WEAR BRYANT HOSE 20 HOURS PER DAY FOR 2 WEEKS. * DERMABOND Prineo- This is a mesh tape dressing that is covered with glue. It should remain in place until the incision is properly healed, usually 10-14 days. This dressing is designed to naturally slough off. You may trim the excess mesh tape as it peels off. Incision may be briefly wet in a shower. Dry immediately by blotting with a clean, dry towel. Do not bath or swim until instructed by your doctor. Do not scratch, rub, or pick at the dressing. Do not apply any topical ointments or lotions until dressing is completely removed and/or instructed by your doctor. There may be a small piece of suture material at one end of your incision. Do not pull or trim this. If it is bothersome or catching on clothing, you may cover it with a band-aid. Call the office with any questions. . FOLLOW UP VISIT: If appointment is not already scheduled: Please call [facility] to make a follow-up appointment for 2 weeks after your surgery at . Current Hospital Diet Patient's current hospital diet: Regular Diet Discharge Diet Recommended Diet: Regular Diet Procedures Procedures Performed: Left Total Knee Arthroplasty- Cemented utilizing Wei nephew journey 2 total knee arthroplasty size 7 femur 5 tibia 13 probably 35 oval patella Pending Studies Studies pending at discharge: no Laboratory Results Hemoglobin A1c Test 11/07/17 10:20 Range/Units Estimated Average Glucose 103 mg/dl Hemoglobin A1c 5.2 4.5-5.6 % Medical Emergencies . Who to Call and When: Medical Emergencies: If at any time you feel your situation is an emergency, please call 911 immediately. . Non-Emergent Contact Non-Emergency issues call your: Surgeon Call Non-Emergent contact if: temperature is above 101.5, your pain is not controlled, your pain is worsening, wound has increased drainage, wound has increased redness . "Provider Documentation" section prepared by Ovidio Cates. . [facility] Monitoring Program Search Results: patient reviewed within database, no issues identified
[2017-12-04 12:43] VITALS: BP 124/78; PULSE 66; TEMP 36.6; O2SAT 97
[2017-12-04] MEDS ORDERED: CeleBREX 200 MG CAP PO SCH (21:00)
== END 2017-12-04 14:30 | disposition home health service (06) | DRG 470 ==
LOC: C.ACU 05:15 → C.3E 06:00 → ENRESERV 10:11
PROVIDERS: ADMIT Orthopaedic Surgery; ATTEND Orthopaedic Surgery
PROC: 0SRD0J9 Replacement of Left Knee Joint with Synthetic Substitute, Cemented, Open Approach (ICD-10-PCS; principal; 2017-12-03 07:15)
DX: M17.12 Unilateral primary osteoarthritis, left knee (principal); I10 Essential (primary) hypertension; Z79.899 Other long term (current) drug therapy

== ENCOUNTER → 2017-12-31 | Outpatient (CLI) | payer BC ==
[~2017-12-31] MED LIST changes: +ACET-24 PO; +ASPI-320 PO; +CLB200 PO; +RXC5 PO; +SENN-61 PO
--- NOTE | 2018-01-01 09:36 | PULMONARY FUNCTION TEST ---
Pre-bronchodilator spirometry reveals a moderate obstructive ventilatory defect even more pronounced at low lung volumes. There was an excellent response to bronchodilators suggesting a reversible airways component. Lung volumes and diffusion capacity were essentially within normal limits. Clinical correlation is needed.
== END | disposition home or self-care (01) ==
LOC: C.RC 13:27
PROVIDERS: ATTEND Internal Medicine Pulmonary Disease
DX: I10 Essential (primary) hypertension (principal); J90 Pleural effusion, not elsewhere classified

== ENCOUNTER → 2018-01-02 | Outpatient (CLI) | payer BC ==
--- NOTE | 2018-01-02 13:49 | DIAGNOSTIC IMAGING REPORT ---
CHEST 2 VIEWS ROUTINE HISTORY: 57 years-old Male J98.59 Mediastinal massJ90 Pleural effusion follow-up study in a patient with pleural effusion COMPARISON: Chest radiograph 11/07/2017 CT chest 07/04/2017. TECHNIQUE: PA and lateral views of the chest FINDINGS: Prominence of the right paratracheal tissues may correlate with previously described mediastinal mass. Cardiac silhouette is within normal limits. There is no pneumothorax. Chronic blunting of the right costophrenic angle with right hemidiaphragmatic elevation redemonstrated. Small right pleural effusion redemonstrated. Linear subsegmental right perihilar and right basilar opacities are again noted suggesting atelectasis. IMPRESSION: Unchanged small right pleural effusion with linear subsegmental right perihilar and right basilar opacities suggesting atelectasis. The above report was generated using voice recognition software. It may contain grammatical, syntax or spelling errors. Electronically signed by: Bernard Prabhakar M.D. 01/02/2018 1:48 PM Dictated Date/Time: 01/02/2018 1:45 PM
== END | disposition home or self-care (01) ==
LOC: C.RAD1850 13:04
PROVIDERS: ATTEND Internal Medicine Pulmonary Disease
DX: J90 Pleural effusion, not elsewhere classified (principal); J98.59 Other diseases of mediastinum, not elsewhere classified; R91.8 Other nonspecific abnormal finding of lung field

== ENCOUNTER → 2018-05-12 | Outpatient (CLI) | payer BC ==
[~2018-05-12] MED LIST changes: -ACET-24 PO; +APIX1TAB3 PO; -ASPI-320 PO; -CLB200 PO; +METO50TA8 PO; -MULT-920 PO; +OPTIRAY 320 IV PRN; -RXC5 PO; -SENN-61 PO
--- NOTE | 2018-05-12 10:23 | DIAGNOSTIC IMAGING REPORT ---
ADDENDUM Upon further review of the case, the 4 mm pleural-based nodule of the right middle lobe and 3 mm solid nodule of the right lower lobe are unchanged from 07/04/2017. Electronically signed by: Bernard Prabhakar M.D. 05/15/2018 10:49 AM Dictated Date/Time: 05/15/2018 10:47 AM ORIGINAL REPORT CHEST CT WITH CONTRAST CT DOSE: 839.43 mGy.cm HISTORY: Follow-up study in a patient with history of thymic carcinoma. Subsequent treatment strategy. THYMIC CA TECHNIQUE: Multiaxial CT images of the chest were performed following the intravenous administration of contrast. A dose lowering technique was utilized adhering to the principles of ALARA. COMPARISON: CT chest 07/04/2017 FINDINGS: Homogeneous appearance of the thyroid. Calcified subcarinal and paratracheal lymph nodes compatible with prior granulomatous disease. Mildly prominent nonenlarged a millimeter right hilar lymph node is unchanged and likely physiologic. Postoperative changes of the anterior mediastinum from prior anterior mediastinal mass resection. There is mild postoperative stranding within the anterior mediastinal fat suggesting expected postsurgical changes without residual mass or fluid collection identified. No abnormal enhancement about the anterior mediastinum. Mild multichamber cardiac enlargement with trace likely physiologic pericardial effusion. Coronary arterial calcifications are noted. Mild calcification of the aorta without aneurysm or dissection. The opacified pulmonary arterial tree is unremarkable. Mild centrilobular emphysema without pneumothorax. Trace right pleural effusion, decreased in size from comparison with areas of subsegmental pleural-parenchymal scarring about the right lung. Scattered calcified granulomata. Postoperative changes about the anterior segment right upper lobe. There is a new pleural-based 4 mm solid nodule of the right middle lobe, image 139 series 4. There is subtle subsegmental tree-in-bud nodularity about the lateral segment right middle lobe, image 180 series 4 suggesting bronchiolitis. Parenchymal scarring is noted about a calcified granuloma of the medial segment right middle lobe. Subsegmental dependent consolidative opacities about the right lower lobe suggest atelectasis. 3 mm solid nodule of the inferior segment lingula, image 170 series 4 appears new from prior. Central airways are patent. 3 mm solid nodule of the right lower lobe, image 142 series 4. Solid nodule of the right middle lobe measuring 2 mm on image 159 series 4. Calcified granulomata about the spleen. No acute process of the imaged upper abdomen. There are a few mildly prominent nonenlarged periesophageal lymph nodes measuring up to 7 mm in short axis which are indeterminate. The bones appear to be intact. There are no suspicious lytic or blastic bony lesions identified. Multilevel spondylitic spurring about the spine. IMPRESSION: 1. Postoperative changes of the anterior mediastinum from prior mass resection. Expected postoperative stranding about the anterior mediastinal fat without postoperative fluid collection, residual or recurrent disease identified. 2. There are a few solid nodules about the bilateral lungs, largest of which measures 4 mm within the right middle lobe and is new from prior study dated 07/04/2017. Follow-up guidelines are provided below. 3. Prior granulomatous disease. 4. Cardiomegaly with coronary arterial disease. Please refer to below summary of Fleischner criteria recommendations for follow-up of incidental CT nodules (Radha Herman, Guidelines for management of small pulmonary nodules detected on CT scans: A statement from the Fleischner Society, Radiology 237: [phone].) SOLID NODULES Multiple nodules size: <6 mm * Low risk patients: no routine follow-up * high risk patients: optional CT at 12 months Note: newly detected indeterminate nodule in persons 35 years of age or older. * Low risk patients: minimal or absent history of smoking and/or other known risk factors * high risk patients: history of smoking or of other known risk factors (e.g. first degree relative with lung cancer, or exposure to asbestos, radon, uranium) * if a nodule up to 8 mm is partly solid or is ground glass further follow-up is required after 24 months to exclude possible slow growing adenocarcinoma (IVON) The above report was generated using voice recognition software. It may contain grammatical, syntax or spelling errors. Electronically signed by: Bernard Prabhakar M.D. 05/12/2018 10:22 AM Dictated Date/Time: 05/12/2018 10:10 AM
== END | disposition home or self-care (01) ==
LOC: C.CTS 09:38
PROVIDERS: ATTEND Physician Assistant Medical
DX: C37 Malignant neoplasm of thymus (principal); R91.8 Other nonspecific abnormal finding of lung field; I51.7 Cardiomegaly; I25.10 Atherosclerotic heart disease of native coronary artery without angina pectoris

== ENCOUNTER → 2018-05-13 | Outpatient (CLI) | payer BC ==
[~2018-05-13] MED LIST changes: -OPTIRAY 320 IV PRN
[2018-05-13 13:13] VITALS: BP 117/79; PULSE 74; TEMP 36.8; O2SAT 96
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
== END | disposition home or self-care (01) ==
LOC: C.ONC 12:57
PROVIDERS: ATTEND Physician Assistant Medical
DX: Z08 Encounter for follow-up examination after completed treatment for malignant neoplasm (principal); Z92.3 Personal history of irradiation; Z85.850 Personal history of malignant neoplasm of thyroid